=== PATIENT | male | born 1985 | race Caucasian/White ===

== ENCOUNTER 2021-04-27 09:11 | Emergency (ER) | payer MEDICAID ==
[~2021-04-27] VITALS: Ht 152.4 cm; Wt 69.9 kg
[2021-04-27 09:21] VITALS: BP 132/67
[2021-04-27] MEDS ORDERED: IBUPROFEN 600 MG TAB PO ONE (10:10)
[2021-04-27] MEDS ORDERED: IBUP-2213 PO (10:57)
== END 2021-04-27 11:05 | disposition home or self-care (01) ==
LOC: MED 09:11
DX: S51.011A Laceration without foreign body of right elbow, initial encounter (principal); W45.8XXA Other foreign body or object entering through skin, initial encounter; Y93.89 Activity, other specified; Y92.89 Other specified places as the place of occurrence of the external cause; Y99.8 Other external cause status
CPT/HCPCS: 73070; 99283

== ENCOUNTER 2021-05-23 08:25 | Emergency (ER) | payer MEDICAID ==
[~2021-05-23] VITALS: Ht 154.9 cm; Wt 71.2 kg
[~2021-05-23 08:25] MED LIST: IBUP-2213 PO
[2021-05-23 08:34] VITALS: BP 139/77
[2021-05-23] MEDS ORDERED: KETOROLAC 30 MG/ML VIAL IM ONE (09:00)
[2021-05-23] MEDS ORDERED: diazePAM 5 MG TAB PO ONE (09:00)
[2021-05-23] MEDS ORDERED: PROCHLORPERAZINE 5 MG TAB PO ONE (09:00)
--- NOTE | 2021-05-23 09:11 | NUR ---
Pt ambulated to [facility].
--- NOTE | 2021-05-23 09:15 | NUR ---
36 Y MALE WITH C/O A HEADAHCE AND NECK PAIN X1 WEEK. PT DENIES ANY HEAD TRAUMA AND STATED THE OSEGUERA STARTED RANDOMLY. PMH: DENIES NKA
[2021-05-23] MEDS ORDERED: IBUP-2213 PO (09:47)
[2021-05-23 09:53] VITALS: BP 139/77
== END 2021-05-23 09:53 | disposition home or self-care (01) ==
LOC: MED 08:25
DX: R51.9 Headache, unspecified (principal); H54.62 Unqualified visual loss, left eye, normal vision right eye
CPT/HCPCS: 96372; 99283; J1885; Q0164

== ENCOUNTER 2021-10-13 08:27 | Emergency (ER) | payer MEDICAID ==
[~2021-10-13] VITALS: Ht 157.5 cm; Wt 68.5 kg
[2021-10-13 08:39] VITALS: BP 114/78
[2021-10-13] MEDS ORDERED: BACITRACIN OINT 500 UNITS/GM PKT TP ONE (08:50)
[2021-10-13] MEDS ORDERED: BACI1PAC6 TP (09:38)
== END 2021-10-13 09:54 | disposition home or self-care (01) ==
LOC: MED 08:27
DX: S90.414A Abrasion, right lesser toe(s), initial encounter (principal); Z79.899 Other long term (current) drug therapy; X58.XXXA Exposure to other specified factors, initial encounter; Y93.89 Activity, other specified; Y92.89 Other specified places as the place of occurrence of the external cause; Y99.8 Other external cause status
CPT/HCPCS: 73660; 99283

== ENCOUNTER 2022-02-12 19:58 | Emergency (ER) | payer MEDICAID ==
[~2022-02-12] VITALS: Ht 157.5 cm; Wt 73.0 kg
[~2022-02-12 19:58] MED LIST changes: +BACI1PAC6 TP
[2022-02-12 20:04] VITALS: BP 142/93
--- NOTE | 2022-02-12 20:45 | NUR ---
PT TAKEN TO BED 3
[2022-02-12] MEDS ORDERED: ACETAMINOPHEN EXTRA STRENGTH 500 MG TAB PO ONE (21:35)
[2022-02-12] MEDS ORDERED: BACITRACIN OINT 500 UNITS/GM PKT TP ONE (21:35)
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
--- NOTE | 2022-02-12 22:05 | NUR ---
PT TAKEN TO CT
--- NOTE | 2022-02-12 22:58 | NUR ---
ER AT BEDSIDE
[2022-02-12] MEDS ORDERED: ACET-10509 PO (23:01)
[2022-02-12] MEDS ORDERED: BACI1PAC6 TP (23:01)
[2022-02-12 23:08] VITALS: BP 138/89
--- NOTE | 2022-02-12 23:09 | NUR ---
Patient discharged with v/s stable. Written and verbal after care instructions given and explained. Patient alert, oriented and verbalized understanding of instructions. Ambulatory with steady gait. All questions addressed prior to discharge. ID band removed. Patient advised to follow up with PMD. Rx of BACITRACIN AND TYLENOL EXTRA STRENGTH given. Patient educated on indication of medication including possible reaction and side effects. Opportunity to ask questions provided and answered. VSS, A/OX4, AMBULATORY, UNLABORED BREATHING, AND CALM DEMEANOR.
== END 2022-02-12 23:09 | disposition home or self-care (01) ==
LOC: MED 19:58
DX: S09.93XA Unspecified injury of face, initial encounter (principal); H54.62 Unqualified visual loss, left eye, normal vision right eye; Z79.899 Other long term (current) drug therapy; W05.1XXA Fall from non-moving nonmotorized scooter, initial encounter; Y93.I9 Activity, other involving external motion; Y92.89 Other specified places as the place of occurrence of the external cause; Y99.8 Other external cause status
CPT/HCPCS: 70480; 99284

== ENCOUNTER 2022-06-08 12:41 | Emergency (ER) | payer MEDICAID ==
[~2022-06-08] VITALS: Ht 156.2 cm; Wt 69.5 kg
[~2022-06-08 12:41] MED LIST changes: +ACET-10509 PO
[2022-06-08 12:49] VITALS: BP 130/100
--- NOTE | 2022-06-08 12:58 | NUR ---
PT AMB TO BED 3.
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
[2022-06-08] MEDS ORDERED: IBUPROFEN 600 MG TAB PO ONE (13:15)
[2022-06-08] MEDS ORDERED: IBUP-2213 PO (13:58)
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
--- NOTE | 2022-06-08 14:08 | NUR ---
Patient discharged with v/s stable. Written and verbal after care instructions given and explained. Patient verbalized understanding. Ambulatory with steady gait. All questions addressed prior to discharge. Advised to follow up with PMD.
== END 2022-06-08 14:08 | disposition home or self-care (01) ==
LOC: MED 12:41
DX: S63.601A Unspecified sprain of right thumb, initial encounter (principal); Z79.899 Other long term (current) drug therapy; X58.XXXA Exposure to other specified factors, initial encounter; Y93.89 Activity, other specified; Y92.89 Other specified places as the place of occurrence of the external cause; Y99.8 Other external cause status
CPT/HCPCS: 73130; 99283

== ENCOUNTER 2022-06-13 13:20 | Emergency (ER) | payer MEDICAID ==
[~2022-06-13] VITALS: Ht 159 cm; Wt 66.8 kg
[2022-06-13 13:37] VITALS: BP 124/67
--- NOTE | 2022-06-13 15:29 | NUR ---
TO ER BED 1
[2022-06-13 15:30] LABS: BASOPHILS % (AUTO) 0.5 % (0.0-2.0); EOSINOPHILS # (AUTO) 0.2 K/uL (0-0.4); EOSINOPHILS % (AUTO) 2.3 % (0.0-4.0); HEMATOCRIT 41.6 % (36-52); HEMOGLOBIN 14.6 g/dL (12.0-18.0); LYMPHOCYTES # (AUTO) 2.9 K/uL (2.0-11.5); LYMPHOCYTES % (AUTO) 38.1 % (20.5-51.1); MEAN CORPUSCULAR HEMOGLOBIN 31 pg (27-31); MEAN CORPUSCULAR HGB CONC 35 g/dL (33-37); MEAN CORPUSCULAR VOLUME 87.9 fL (80-94); MONOCYTES # (AUTO) 0.6 K/uL (0.8-1.0); NEUTROPHILS # (AUTO) 3.9 K/uL (1.8-7.7); NEUTROPHILS % (AUTO) 51.1 % (42.2-75.2); PLATELET COUNT (AUTO) 274 K/uL (140-450); RED BLOOD CELL COUNT(AUTO) 4.74 MIL/uL (4.20-6.10); WHITE BLOOD COUNT (AUTO) 7.7 K/uL (4.8-10.8)
[2022-06-13 15:55] LABS: ALBUMIN 3.8 g/dL (3.4-5.0); CARBON DIOXIDE 28.6 mmol/L (21-32); CREATININE 0.8 mg/dL (0.6-1.3); POTASSIUM 3.6 mmol/L (3.5-5.1); TOTAL BILIRUBIN 0.4 mg/dL (0.0-1.0)
[2022-06-13] MEDS ORDERED: ONDANSETRON 4 MG ODT PO ONE (16:00)
[2022-06-13] MEDS ORDERED: MECLIZINE 25 MG TAB PO ONE (16:00)
[2022-06-13] MEDS ORDERED: KETOROLAC 30 MG/ML VIAL IM ONE (16:00)
--- NOTE | 2022-06-13 16:20 | NUR ---
a/o times 4, nad, abd pain 10/23, no dizziness, o2 sat 99% ra, no n/v, sr up times 2, awaits dispo
[2022-06-13 16:41] LABS: APPEARANCE,URINE CLEAR (CLEAR); BILIRUBIN,URINE 1+ (NEGATIVE); BLOOD, URINE TRACE-I (NEGATIVE); COLOR,URINE YELLOW (YELLOW); LEUKOCYTE ESTERASE ,URINE NEGATIVE (NEGATIVE); NITRITE, URINE NEGATIVE (NEGATIVE); UGLUCOSE NEGATIVE (NEGATIVE)
[2022-06-13 17:10] LABS: BARBITURATE, URINE NEGATIVE ng/ml (NEG <=200); BENZODIAZEPINE, URINE NEGATIVE ng/mL (NEG <=200)
[2022-06-13 17:11] LABS: CANNABINOID, URINE NEGATIVE ng/mL (NEG <=50); COCAINE, URINE NEGATIVE ng/mL (NEG <=300); OPIATE, URINE NEGATIVE ng/mL (NEG <=2000); PHENCYCLIDINE SCREEN,URINE NEGATIVE ng/mL (NEG <=25)
[2022-06-13] MEDS ORDERED: IBUP-2213 PO (17:38)
[2022-06-13] MEDS ORDERED: ONDA-188 PO (17:38)
[2022-06-13] MEDS ORDERED: MECL-303 PO (17:38)
[2022-06-13] MEDS ORDERED: CEPH-588 PO (17:43)
[2022-06-13 17:55] VITALS: BP 104/76
[2022-06-13 20:22] LABS: RBC,URINE 0-5 /HPF (0-5); WBC,URINE NONE SEEN /HPF (0-5)
[2022-06-13 20:24] LABS: RBC,URINE 0-5 /HPF (0-5); WBC,URINE NONE SEEN /HPF (0-5)
== END 2022-06-13 17:55 | disposition home or self-care (01) ==
LOC: MED 13:20
DX: H81.11 Benign paroxysmal vertigo, right ear (principal); F15.90 Other stimulant use, unspecified, uncomplicated
CPT/HCPCS: 36415; 76705; 80053; 80305; 81001; 81003; 83690; 85025; 96372; 99284; J1885; J8597; Q0092; Q0162

== ENCOUNTER 2022-08-09 12:21 | Emergency (ER) | payer MEDICAID ==
[~2022-08-09] VITALS: Ht 154.2 cm; Wt 66.8 kg
[~2022-08-09 12:21] MED LIST changes: +BACI-416 TP; -BACI1PAC6 TP; +CEPH-588 PO; +MECL-303 PO; +ONDA-188 PO
[2022-08-09 12:26] VITALS: BP 135/73
--- NOTE | 2022-08-09 12:29 | NUR ---
PT AMB TO BED9.
--- NOTE | 2022-08-09 12:32 | NUR ---
PATIENT AMBULATED TO BED 9.
--- NOTE | 2022-08-09 12:40 | NUR ---
BIB SELF C/O COUGH, RUNNY NOSE, OSEGUERA, SORE THROAT, BODY ACHES X 2 WEEKS. COVID TESTED NEGATIVE 2 DAYS AGO.
[2022-08-09] MEDS ORDERED: FLONAS NS (12:52)
[2022-08-09] MEDS ORDERED: ROBAC PO (12:52)
--- NOTE | 2022-08-09 12:58 | NUR ---
Patient discharged with v/s stable. Written and verbal after care instructions given and explained. Patient alert, oriented and verbalized understanding of instructions. Ambulatory with steady gait. All questions addressed prior to discharge. ID band removed. Patient advised to follow up with PMD. Rx of FLONASE NASAL & GUAIFENESIN-CODEINE SYRUP given. Patient educated on indication of medication including possible reaction and side effects. Opportunity to ask questions provided and answered.
[2022-08-09 13:03] VITALS: BP 134/82
== END 2022-08-09 12:58 | disposition home or self-care (01) ==
LOC: MED 12:21
DX: J06.9 Acute upper respiratory infection, unspecified (principal); R03.0 Elevated blood-pressure reading, without diagnosis of hypertension; R05.9 Cough, unspecified; R09.81 Nasal congestion; Z79.899 Other long term (current) drug therapy
CPT/HCPCS: 99283

== ENCOUNTER 2023-05-25 04:30 | Emergency (ER) | payer MEDICAID ==
[~2023-05-25] VITALS: Ht 160 cm; Wt 71.7 kg
[~2023-05-25 04:30] MED LIST changes: -BACI-416 TP; +BACI-418 TP; +FLONAS NS; +ROBAC PO
[2023-05-25 04:37] VITALS: BP 160/107; PULSE 65; RESP 18; TEMP 97.6; O2SAT 100
[2023-05-25] MEDS ORDERED: COROTSOL LEFT EAR (05:03)
== END 2023-05-25 05:05 | disposition home or self-care (01) ==
LOC: MED 04:30
DX: T16.2XXA Foreign body in left ear, initial encounter (principal); W44.F4XA Insect entering into or through a natural orifice, initial encounter; Y93.89 Activity, other specified; Y92.89 Other specified places as the place of occurrence of the external cause; Y99.8 Other external cause status
CPT/HCPCS: 99281; 99283